=== PATIENT | female | born 1975 | race Two or more races ===

== ENCOUNTER 2019-08-05 10:35 | Outpatient (CLI) | payer OTHER | END 2019-08-05 10:43 | disposition home or self-care (01) | LOC: SONOGRAMA 10:35 → MAMO-SONO 11:15 | DX: M05.79 Rheumatoid arthritis with rheumatoid factor of multiple sites without organ or systems involvement (principal) ==

== ENCOUNTER 2020-01-27 13:37 | Outpatient (CLI) | payer OTHER | END 2020-01-27 13:51 | disposition home or self-care (01) | LOC: SONOGRAMA 13:37 → MAMO-SONO 14:45 | PROVIDERS: ATTEND Internal Medicine | DX: M75.112 Incomplete rotator cuff tear or rupture of left shoulder, not specified as traumatic (principal) ==

== ENCOUNTER 2021-04-19 12:05 | Outpatient (CLI) | payer OTHER | END 2021-04-19 12:26 | disposition home or self-care (01) | LOC: SONOGRAMA 12:05 → MAMO-SONO 13:00 | PROVIDERS: ATTEND Specialist | DX: M79.641 Pain in right hand (principal); M79.642 Pain in left hand; M25.532 Pain in left wrist; M25.531 Pain in right wrist; M05.79 Rheumatoid arthritis with rheumatoid factor of multiple sites without organ or systems involvement ==